=== PATIENT | male | born 1990 | race Caucasian/White ===

== ENCOUNTER 2022-06-14 05:41 | Emergency (ER) | payer OTHER ==
[~2022-06-14] VITALS: Ht 170.2 cm; Wt 84.4 kg
[2022-06-14 06:21] VITALS: BP_SYST 155
--- NOTE | 2022-06-14 06:21 | NUR ---
Patient came in to the emergency room with complains of punctured wound to left 3rd digit happened at work approximately at 0430 hrs. Patient reports he was trying to open a wood crate when it accidentally punctured his finger. Patient complains of 8/10 PS, not taken anything for it. Patient is not up to date with his Tetanus vaccine. AAO x 4, ambulatory with steady gait. No other remarkable symptoms noted.
--- NOTE | 2022-06-14 06:28 | NUR ---
Patient triaged and placed in waiting room. VS checked and patient appears in no acute distress at this time. Accompanied by self, awaiting available bed, and MD notified of need for MSE.
--- NOTE | 2022-06-14 06:42 | NUR ---
Patient ambulatory to bed 8 for evaluation and treatment
--- NOTE | 2022-06-14 06:42 | NUR ---
ER at bedside examining patient.
--- NOTE | 2022-06-14 06:43 | NUR ---
Cleansed wound with normal saline and water
[2022-06-14] MEDS ORDERED: DIPHTH,PERTUSS(ACELL),TET VAC 0.5 ML VIAL (Tdap) I.M. ONE (07:00)
[2022-06-14] MEDS ORDERED: BACITRACIN 1 GM OINT TP ONE (07:00)
--- NOTE | 2022-06-14 07:00 | NUR ---
Report given to EPI Mckinney
[2022-06-14] MEDS ORDERED: AMOX-423 PO (07:43)
[2022-06-14] MEDS ORDERED: IBUP-1971 PO (07:43)
--- NOTE | 2022-06-14 08:26 | NUR ---
Patient given written and verbal discharge instructions and verbalizes understanding. ER MD discussed with patient the results and treatment provided. Patient in stable condition. ID arm band removed. IV catheter removed intact and dressing applied, no active bleeding. Rx of AMOX/IBUP given. Patient educated on pain management and to follow up with PMD. Pain Scale 0. Opportunity for questions provided and answered. Medication side effect fact sheet provided.
== END 2022-06-14 08:26 | disposition home or self-care (01) ==
LOC: SED 05:41
DX: S61.233A Puncture wound without foreign body of left middle finger without damage to nail, initial encounter (principal); W45.8XXA Other foreign body or object entering through skin, initial encounter; Y93.89 Activity, other specified; Y92.89 Other specified places as the place of occurrence of the external cause; Y99.0 Civilian activity done for income or pay
CPT/HCPCS: 73140-TC; 90715; 99283

== ENCOUNTER 2022-06-20 00:24 | Emergency (ER) | payer OTHER ==
[~2022-06-20] VITALS: Ht 170.2 cm; Wt 84.4 kg
[~2022-06-20 00:24] MED LIST: AMOX-423 PO; IBUP-1971 PO
[2022-06-20 00:46] VITALS: BP_SYST 124
--- NOTE | 2022-06-20 00:50 | NUR ---
Patient triaged and placed in waiting room. VS checked and patient appears in no acute distress at this time. Accompanied by self, awaiting available bed, and MD notified of need for MSE.
--- NOTE | 2022-06-20 01:25 | NUR ---
ER in waiting room examining patient.
--- NOTE | 2022-06-20 01:29 | NUR ---
Patient ambulatory to bed 1 for treatment
[2022-06-20] MEDS ORDERED: LIDOCAINE 1% 10 MG/ML, 20 ML MDV INJ ONE (01:30)
[2022-06-20] MEDS ORDERED: BACITRACIN 1 GM OINT TP ONE ×2 (02:00→02:01)
--- NOTE | 2022-06-20 02:28 | NUR ---
Patient given written and verbal discharge instructions and verbalizes understanding. ER MD discussed with patient the results and treatment provided. Patient in stable condition. ID arm band removed. NO RX given. Patient educated on pain management and to follow up with PMD. Pain Scale 0/10 Opportunity for questions provided and answered.
[2022-06-20 02:29] VITALS: BP_SYST 126
== END 2022-06-20 02:29 | disposition home or self-care (01) ==
LOC: SED 00:24
DX: S60.453A Superficial foreign body of left middle finger, initial encounter (principal); Z79.899 Other long term (current) drug therapy; W45.8XXA Other foreign body or object entering through skin, initial encounter; Y93.89 Activity, other specified; Y92.89 Other specified places as the place of occurrence of the external cause; Y99.8 Other external cause status
CPT/HCPCS: 99285; 10120; 73140; J2001